=== PATIENT | female | born 1985 | race Caucasian/White ===

== ENCOUNTER 2019-09-03 08:13 | Emergency (ER) | payer OTHER, SELFPAY ==
--- NOTE | ~2019-09-03 | CT_ITS ---
EXAMINATION: CTA chest PE protocol DATE: 09/03/2019 10:25 INDICATION: Cough TECHNIQUE: Computed tomography angiography (CTA) of the chest was performed with 100 mL Omnipaque-350 intravenous contrast timed to evaluate the pulmonary arteries. Coronal maximum intensity projection 3D-reconstructions were created by the technologist. Automated exposure control and iterative reconst ruction technique were employed. Exam dose: 230.61 mGy-cm total exam DLP. COMPARISON: 09/03/2019 view chest x-ray FINDINGS: There is diagnostic contrast enhancement of the pulmonary arteries and no evidence of pulmo nary embolism. No thoracic aortic aneurysm or dissection. No hilar or mediastinal mass lesion or lymphadenopathy. Normal heart size. No pericardial or pleural effusion. No pulmonary infiltrate or consolidation or pulmonary mass lesion is detected. There is evidence of bilateral nephrolithiasis. Included upper abdominal structures are otherwise unr emarkable. Included skeletal structures are unremarkable. IMPRESSION: No evidence of pulmonary embolism Bilateral nephrolithiasis Reviewed, dictated and finalized at [facility]. Reviewed, dictated and finalized at location B. 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
--- NOTE | ~2019-09-03 | XR_ITS ---
EXAMINATION: XR chest 2V DATE: 09/03/2019 08:57 INDICATION: Cough. TECHNIQUE: Frontal and lateral views of the chest were obtained. COMPARISON: Chest 2 views 10/11/2010, CT abdomen and pelvis 07/29/2016 FINDINGS: The chest demonstrates clear lungs without pneumonia, pleural effusion, or pneumothorax. Th e heart size is normal. IMPRESSION: 1. No acute cardiopulmonary disease. Reviewed, dictated and finalized at location A. MONITOR
[2019-09-03 08:22] VITALS: BP 134/75; PULSE 116; RESP 20; TEMP 36.8; O2SAT 97
--- NOTE | 2019-09-03 08:32 | ED.URI ---
HPI - URI/Sore Throat General Chief Complaint: Upper Respiratory Infection Stated Complaint: Cough Time Seen by Provider: 09/03/19 08:18 Source: patient Mode of arrival: ambulatory Limitations: no limitations History of Present Illness HPI Narrative: Patient presents with chief complaint of persistent cough and sore throat that has been present since . She denies pain with inspiration or feelings of shortness of breath. She denies any fever, chills, rhinorrhea, congestion. She did not receive a flu shot this year. Patient states she has asthma and has felt wheezing in the chest. Patient states she has not used an inhaler because she does not have one at home. She denies smoking. She denies known sick contacts. She reports productive cough of clear phlegm that has been persistent and worsening. She denies - due to hysterectomy. She reports she had the cough before traveling to [place], but it has worsened since. Related Data Allergies Allergy/AdvReac Type Severity Reaction Status Date / Time latex Allergy Severe RASH OVER Verified 09/03/19 08:31 ENTIRE BODY, DENIES RESPIR. DISTRESS-GLOVES meperidine Allergy Severe GENERALIZED Verified 09/03/19 08:31 SWELLING tree and shrub pollen Allergy Unknown ITCHY Verified 09/03/19 08:31 WATERY EYES, SOB DIPHENHYDRAMINE HCL Allergy Unknown ITCHING Uncoded 09/03/19 08:31 Grass Allergy Unknown ITCHY Uncoded 09/03/19 08:31 WATERY EYES, SOB Review of Systems Review of Systems: Narrative: CONSTITUTIONAL: Denies fever, chills, or sweats. EYES: Denies visual changes, redness, or discharge. ENT: Reports sore throat denies rhinorrhea, congestion, or otalgia. CARDIOVASCULAR: Denies chest pain, palpitations, or edema. RESPIRATORY: Reports cough denies dyspnea. GASTROINTESTINAL: Denies abdominal pain, nausea, vomiting, or diarrhea. GENITOURINARY: Denies dysuria or hematuria. SKIN: Denies rash or itching. MUSCULOSKELETAL: Denies back pain, joint pain, or myalgia. NEUROLOGIC: Denies headache, numbness, dizziness, or weakness. PSYCHIATRIC: Denies anxiety or depression. PMFSH Social History Social History Gender identity (if verbalized by the patient): Female Exam Narrative: Exam Narrative: GENERAL: Well-appearing, well-nourished, and in no acute distress. HEAD: Normocephalic, atraumatic. EYES: PERRLA and EOMI. ENT: Nares clear, no rhinorrhea or epistaxis. Mucous membranes moist. Oropharynx without tonsillar hypertrophy exudate or other lesions. Bilateral TMs pearly quan nonbulging NECK: Supple. No adenopathy or masses. No carotid bruits or JVD CHEST: Clear to auscultation. No respiratory distress. No wheezes rales or rhonchi. Persistent dry cough noted during physical exam. No CVA tenderness HEART: Regular rate and rhythm. No murmur heard. Normal peripheral pulses. EXTREMITIES: Normal range of motion. No edema. SKIN: Warm, dry, no rash. NEURO: No focal deficits. Alert and oriented x3. PSYCH: Normal mood and affect. Course Course Emergency Course: Patient now admits to being on estrogen therapy and her cough presenting after her long travel to [place]. She does not smoke or have calf pain, but due to the former risk d dimer will be obtained. Patient states her symptoms feel like past episodes of bronchitis or pneumonia but she is agreeable to dimer after risks and benefits were explained. Vital Signs Vital signs: Vital Signs Temperature 98.3 F 09/03/19 08:22 Pulse Rate 116 H 09/03/19 08:22 Respiratory Rate 20 09/03/19 08:22 Blood Pressure 134/75 09/03/19 08:22 Pulse Oximetry 97 09/03/19 08:22 Temperature 98.3 F 09/03/19 08:22 Pulse Rate 116 H 09/03/19 08:22 Respiratory Rate 20 09/03/19 08:22 Blood Pressure 134/75 09/03/19 08:22 Pulse Oximetry 97 09/03/19 08:22 MDM - URI/Sore Throat MDM Narrative Medical decision making narrative: Discussed with patient that she has been found negative
[2019-09-03] MEDS: ALBUTEROL SULFATE NEB 2.5 MG/0.5 ML INH 5 MG INHALATION (08:43)
[2019-09-03 09:54] LABS: D Dimer 1.12 ug/mL (<0.48)
[2019-09-03 10:08] LABS: Basophils Percent Auto 0.1 % (0.2-1.2); Eosinophils Percent Auto 0.3 % (0-4.4); Hematocrit 39.6 % (37.0-47.0); Hemoglobin 12.8 g/dL (12.0-15.0); Immature Granulocyte Absolute 0.01 K/mm3 (0.00-0.031); Immature Granulocyte Percent A 0.1 % (0-0.5); Lymphocytes Absolute Auto 2.95 K/mm3 (0.9-3.2); Lymphocytes Percent Auto 40.1 % (18.3-44.2); Mean Corpuscular HGB Conc 32.3 g/dl (32-36); Mean Corpuscular Hemoglobin 28.2 pg (26-34); Mean Corpuscular Volume 87.2 fl (80-100); Mean Platelet Volume 9.7 fl (7.4-10.4); Monocytes Absolute Auto 0.8 K/mm3 (0.1-0.6); Monocytes Percent Auto 10.6 % (2.6-8.5); Neutrophils Absolute Auto 3.6 K/mm3 (1.3-6.7); Neutrophils Percent Auto 48.8 % (45.5-73.1); Platelet Count Result 333 k/mm3 (150-375); Red Blood Count 4.54 M/mm3 (4.2-5.4); Red Cell Distribution Width 13.2 % (11.5-14.5); White Blood Count 7.4 K/mm3 (4.5-10.0)
[2019-09-03 10:15] LABS: Alanine Aminotransferase 24 U/L (4-35); Albumin Level 4.4 g/dL (3.5-5.1); Alkaline Phosphatase 73 U/L (38-126); Aspartate Amino Transferase 24 U/L (14-36); Bilirubin,Total 0.6 mg/dL (0.2-1.3); Blood Urea Nitrogen 14 mg/dL (7-17); Calcium 9.1 mg/dL (8.4-10.2); Carbon Dioxide 25 mmol/L (22-30); Chloride 103 mmol/L (98-107); Estimated CRCL calculation 124 ml/min; Estimated Glomerular Filt Rate > 60; Glucose 109 mg/dL (65-105); Potassium 3.4 mmol/L (3.4-5.0); Sodium 140 mmol/L (137-145)
== END 2019-09-03 11:17 | disposition home or self-care (01) ==
PROVIDERS: Physician Assistant; Emergency Provider Emergency Medicine
DX: J40 Bronchitis, not specified as acute or chronic (principal)
CPT/HCPCS: 36415; 71046; 71275; 80053; 85025; 85380; 87081; 87804; 87880; 94640; 99284; Q9967

== ENCOUNTER 2020-03-02 10:09 | Outpatient (CLI) | payer OTHER, SELFPAY ==
--- NOTE | ~2020-03-02 | XR_ITS ---
XR cervical spine 4-5V DATE: 03/02/2020 11:03 INDICATION: Neck pain TECHNIQUE: AP, open-mouth, lateral, swimmer views COMPARISON: None FINDINGS: No fracture or dislocation or locked facet. C1 and C2 are normally aligned and the odontoid process is intact. No prevertebral soft tissue swelling. Cervical interspaces are preserved. IMPRESSION: Negative Reviewed, dictated and finalized at location B. IMPRESSION: Negative
--- NOTE | ~2020-03-02 | XR_ITS ---
XR sacroiliac joints min 3V DATE: 03/02/2020 11:03 INDICATION: Bilateral sacroiliac pain, low back pain. TECHNIQUE: AP and bilateral oblique views COMPARISON: None FINDINGS: No pelvic fracture or bone destruction. Normal alignment at the pubic symphysis and sacroil iac joints. No erosion, ankylosis, fracture or dislocation of the sacroiliac joints. IMPRESSION: Negative Reviewed, dictated and finalized at [facility]. Reviewed, dictated and finalized at location B. IMPRESSION: Negative
--- NOTE | ~2020-03-02 | XR_ITS ---
XR lumbar spine min 4V DATE: 03/02/2020 11:03 INDICATION: Low back pain, pelvic and perineal pain. No injury. TECHNIQUE: Lateral oblique views, coned lateral lumbosacral view COMPARISON: None FINDINGS: Normal alignment. No fracture or bone destruction, spondylolysis or spondylolisthesis. The lumbar pedicles are intact. The sacroiliac joints appear normal. Lumbar levels secondary spaces are well preserved. There is minimal degenerative spurring at the ante rosuperior margins of L3-L4 primarily. The sacroiliac joints appear normal. IMPRESSION: Minimal degenerative change of the lumbar spine Reviewed, dictated and finalized at location B.
[2020-03-02 12:24] LABS: Basophils Percent Auto 0.5 % (0.2-1.2); Eosinophils Absolute Auto 0.2 K/mm3 (0-0.3); Eosinophils Percent Auto 2.5 % (0-4.4); Hematocrit 39.4 % (37.0-47.0); Hemoglobin 12.8 g/dL (12.0-15.0); Immature Granulocyte Absolute 0.03 K/mm3 (0.00-0.031); Immature Granulocyte Percent A 0.3 % (0-0.5); Lymphocytes Absolute Auto 2.64 K/mm3 (0.9-3.2); Lymphocytes Percent Auto 30.5 % (18.3-44.2); Mean Corpuscular HGB Conc 32.5 g/dl (32-36); Mean Corpuscular Hemoglobin 28.7 pg (26-34); Mean Corpuscular Volume 88.3 fl (80-100); Mean Platelet Volume 9.8 fl (7.4-10.4); Monocytes Absolute Auto 0.6 K/mm3 (0.1-0.6); Monocytes Percent Auto 6.4 % (2.6-8.5); Neutrophils Absolute Auto 5.2 K/mm3 (1.3-6.7); Neutrophils Percent Auto 59.8 % (45.5-73.1); Platelet Count Result 332 k/mm3 (150-375); Red Blood Count 4.46 M/mm3 (4.2-5.4); Red Cell Distribution Width 12.6 % (11.5-14.5); White Blood Count 8.7 K/mm3 (4.5-10.0)
[2020-03-02 12:35] LABS: Add Urine Microscopic? YES; Appearance Urine Cloudy (Clear); Bacteria Urine Trace /hpf; Bilirubin Urine Negative (Negative); Blood Urine Negative (Negative); Color Urine Yellow (Yellow); Glucose Urine UA Negative (Negative); Ketones Urine Negative (Negative); Leukocyte Esterase Ur Negative LEU/UL (Negative); Mucus Urine Few /lpf; Nitrate Urine Negative (Negative); Protein Urine Negative (Negative); RBC Urine 0-2 /hpf (0-2); Specific Grav Ur 1.016 (1.001-1.035); Squamous Epithelial Cell Urine Many /hpf (Few); Urobilinogen Urine Negative mg/dL (<2.0); WBC Urine 0-3 /hpf
[2020-03-02 12:40] LABS: Alanine Aminotransferase 22 U/L (4-35); Albumin Level 4.4 g/dL (3.5-5.1); Alkaline Phosphatase 63 U/L (38-126); Anion Gap 13.4 mmol/L (7-16); Aspartate Amino Transferase 21 U/L (14-36); Bilirubin,Total 0.7 mg/dL (0.2-1.3); Blood Urea Nitrogen 12 mg/dL (7-17); CRP < 0.5 mg/dL (<1.0); Calcium 9.1 mg/dL (8.4-10.2); Carbon Dioxide 26 mmol/L (22-30); Chloride 103 mmol/L (98-107); Creatine Kinase 72 U/L (30-135); Estimated Glomerular Filt Rate > 60; Glucose 98 mg/dL (65-105); Potassium 4.4 mmol/L (3.4-5.0); Sodium 138 mmol/L (137-145)
[2020-03-02 12:41] LABS: Rheumatoid Factor < 8.6 IU/ML (<12)
[2020-03-02 13:10] LABS: Erythrocyte Sedimentation Rate 15 mm/hr (0-20)
[2020-03-02 13:57] LABS: Hepatitis B Surface Antigen Negative (Negative)
[2020-03-02 14:14] LABS: Hepatitis C Virus Antibody Negative (Negative)
[2020-03-05 09:52] LABS: Anti Cyclic Citrullinated Pept <16 Units (<20)
[2020-03-06 07:43] LABS: Chromatin Antibody <1.0; SS-A <1.0; SS-B <1.0
[2020-03-18 07:00] LABS: Histone Antibody <1.0 U (<1.0)
== END 2020-03-02 10:10 | disposition home or self-care (01) ==
PROVIDERS: Visit Provider Internal Medicine Rheumatology
DX: M54.42 Lumbago with sciatica, left side (principal); M54.41 Lumbago with sciatica, right side
CPT/HCPCS: 36415; 72050; 72110; 72202; 80053; 81001; 82550; 83516; 84439; 84443; 85025; 85652; 86038; 86140; 86200; 86235; 86430; 86803; 87340

== ENCOUNTER 2020-06-02 09:36 | Outpatient (CLI) | payer OTHER, SELFPAY ==
--- NOTE | ~2020-06-02 | US_ITS ---
EXAMINATION: US pelvic complete w TV EXAM DATE: 06/02/2020 10:32 INDICATION: Pelvic, perineal pain. Hysterectomy 2019. TECHNIQUE: Pelvic transabdominal and transvaginal sonogram was performed. There are multiple graysca le and Doppler images available for interpretation. Comparison is made to prior examination from 08/16. FINDINGS: The vaginal cuff is unremarkable. There is small amount of free pelvic fluid. There is no f ree pelvic fluid. Right adnexa: The ovary measures 3.1 x 3.1 x 2.2 cm and is morphologically normal. Ovarian vascular f low confirmed. Left adnexa: The ovary measures 4.1 x 2.3 x 2.7 cm and is morphologically normal. Ovarian vascular fl ow confirmed. IMPRESSION: 1. Unremarkable pelvic ultrasound exam. Reviewed, dictated and finalized at location B. 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
== END 2020-06-02 09:37 | disposition home or self-care (01) ==
PROVIDERS: Visit Provider Advanced Practice Midwife
DX: R10.2 Pelvic and perineal pain (principal)
CPT/HCPCS: 76830; 76856

== ENCOUNTER 2020-06-14 08:41 | Outpatient (CLI) | payer OTHER, SELFPAY ==
--- NOTE | ~2020-06-14 | US_ITS ---
EXAMINATION: US abdomen complete EXAM DATE: 06/14/2020 09:33 INDICATION: Suspect gallstones. TECHNIQUE: Multiple grayscale and Doppler images of the complete abdomen were obtained (by a technolo gist who performed the scan) and subsequently reviewed. There is no prior study for comparison. FINDINGS: The abdominal aorta is normal in caliber. Visualized portion IVC is patent. The pancreatic head a nd body are normal in appearance. The pancreatic tail is not visualized. The liver has normal echogenicity and contour. There are no focal liver lesions identified. There is no evidence of intrahepatic biliary duct dilation. Portal venous flow was seen in the hepatopedal , normal direction and has normal Doppler waveform. Common bile duct measures 2 mm, which is normal. The gallbladder wall is normal in thickness, with ex pected amount of distention. No sonographic evidence of pericholecystic fluid. There is no cholelit hiases. Technologist performing exam reports patient did not demonstrate sonographic Boswell's sign. Please note that this sign is less reliable in patients who have received pain medication. Right kidney: There is normal contour and echogenicity. It measures 10.8 x 4.8 x 4.7 centimeters. There are no focal renal lesions identified. There is no hydronephrosis. Left kidney: There is normal contour and echogenicity. It measures 10.9 x 4.8 x 5.7 centimeters. T here are no focal renal lesions identified. There is no hydronephrosis. The spleen measures 10.7 centimeters and is morphologically normal. IMPRESSION: 1. Unremarkable complete abdominal ultrasound exam. Reviewed, dictated and finalized at location A. 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
== END 2020-06-14 08:42 | disposition home or self-care (01) ==
PROVIDERS: Visit Provider Advanced Practice Midwife
DX: Z13.818 Encounter for screening for other digestive system disorders (principal)
CPT/HCPCS: 76700

== ENCOUNTER 2020-06-18 10:14 | Emergency (ER) | payer OTHER, SELFPAY ==
[2020-06-18 10:50] VITALS: BP 108/78; PULSE 101; RESP 14; TEMP 37; O2SAT 99
[2020-06-18 11:13] VITALS: BP 102/70; PULSE 88; RESP 17; O2SAT 99
--- NOTE | 2020-06-18 11:42 | ED.GENADULT ---
HPI - General Adult General Chief complaint: Upper Respiratory Infection <JAGDISH Morrissey Last Filed: 06/18/20 11:56> Stated complaint: frias/st/body aches <Bulmaro Glez PA-C - Last Filed: 06/18/20 11:56> Time Seen by Provider: 06/18/20 10:19 <Bulmaro Glez PA-C - Last Filed: 06/18/20 11:56> Source: patient <JAGDISH Morrissey Last Filed: 06/18/20 11:56> Mode of arrival: ambulatory <JAGDISH Morrissey Last Filed: 06/18/20 11:56> Limitations: no limitations <JAGDISH Morrissey Last Filed: 06/18/20 11:56> History of Present Illness HPI narrative: Patient presents with chief complaint of headaches, sore throat and body aches that began on Sunday. Patient states she has been taking Tylenol or ibuprofen for her discomfort. Patient denies cough, being short of breath, or having chest pain, lethargy or syncope. She denies any known Covid positive contacts. Patient denies any chronic health problems and states that her only daily medications is a multivitamin. <JAGDISH Morrissey Last Filed: 06/18/20 11:56> Related Data Allergies/adverse reactions: Allergies Allergy/AdvReac Type Severity Reaction Status Date / Time latex Allergy Severe RASH OVER Verified 09/03/19 08:31 ENTIRE BODY, DENIES RESPIR. DISTRESS-GLOVES meperidine Allergy Severe GENERALIZED Verified 09/03/19 08:31 SWELLING tree and shrub pollen Allergy Unknown ITCHY Verified 09/03/19 08:31 WATERY EYES, SOB DIPHENHYDRAMINE HCL Allergy Unknown ITCHING Uncoded 09/03/19 08:31 Grass Allergy Unknown ITCHY Uncoded 09/03/19 08:31 WATERY EYES, SOB <JAGDISH Morrissey Last Filed: 06/18/20 11:56> Review of Systems Review of Systems: Narrative: CONSTITUTIONAL: Reports body aches denies fever, chills, or sweats. EYES: Denies visual changes, redness, or discharge. ENT: Reports sore throat denies rhinorrhea, congestion, or otalgia. CARDIOVASCULAR: Denies chest pain, palpitations, or edema. RESPIRATORY: Denies cough or dyspnea. GASTROINTESTINAL: Denies abdominal pain, nausea, vomiting, or diarrhea. GENITOURINARY: Denies dysuria or hematuria. SKIN: Denies rash or itching. MUSCULOSKELETAL: Denies back pain, joint pain, or myalgia. NEUROLOGIC: Reports headache denies numbness, dizziness, or weakness. PSYCHIATRIC: Denies anxiety or depression. <Bulmaro Glez PA-C - Last Filed: 06/18/20 11:56> [facility] Social History Social History: Social History Gender identity (if verbalized by the patient): Female <JAGDISH Morrissey Last Filed: 06/18/20 11:56> Exam Narrative: Exam Narrative: GENERAL: Well-appearing, well-nourished, and in no acute distress. HEAD: Normocephalic, atraumatic. EYES: PERRLA and EOMI. ENT: Nares clear, no rhinorrhea or epistaxis. Patient handling her secretions appropriately. No gagging or hot potato voice. CHEST: Clear to auscultation. No respiratory distress. No wheezes rales or rhonchi. Not tachypneic HEART: Regular rate and rhythm. EXTREMITIES: Normal range of motion. No edema. SKIN: Warm, dry, no rash. NEURO: No focal deficits. Alert and oriented x3. PSYCH: Normal mood and affect. <Bulmaro Glez PA-C - Last Filed: 06/18/20 11:56> Course Vital Signs Vital signs: Vital Signs Temperature 98.6 F 06/18/20 10:50 Pulse Rate 101 H 06/18/20 10:50 Respiratory Rate 14 06/18/20 10:50 Blood Pressure 108/78 06/18/20 10:50 Pulse Oximetry 99 06/18/20 10:50 Temperature 98.6 F 06/18/20 10:50 Pulse Rate 76 06/18/20 12:04 Respiratory Rate 17 06/18/20 12:04 Blood Pressure 131/72 06/18/20 12:04 Pulse Oximetry 99 06/18/20 12:04 <JAGDISH Morrissey Last Filed: 06/18/20 11:56> Vital Signs Temperature 98.6 F 06/18/20 10:50 Pulse Rate 101 H 06/18/20 10:50 Respiratory Rate 14 06/18/20 10:50 Blood Pressure 108/78 06/18/20 10:50 Pulse Oximetry 99 06/18/20 10
[2020-06-18 12:04] VITALS: BP 131/72; PULSE 76; RESP 17; O2SAT 99
[2020-06-18 19:24] LABS: SARS-CoV-2 RNA PCR Positive
== END 2020-06-18 12:05 | disposition home or self-care (01) ==
PROVIDERS: Physician Assistant; Emergency Provider General Practice
DX: U07.1 COVID-19 (principal)
CPT/HCPCS: 87081; 87635; 87804; 87880; 99283; C9803; U0003

== ENCOUNTER 2020-07-09 02:06 | Outpatient (CLI) | payer OTHER, SELFPAY ==
[2020-07-09 18:46] LABS: SARS-CoV-2 RNA PCR Negative
== END 2020-07-09 02:07 | disposition home or self-care (01) ==
LOC: ANHCOVIDDT 02:06
PROVIDERS: Visit Provider Obstetrics & Gynecology
DX: Z01.812 Encounter for preprocedural laboratory examination (principal); Z11.59 Encounter for screening for other viral diseases
CPT/HCPCS: 87635; C9803; U0003

== ENCOUNTER 2020-07-12 00:48 | Day surgery (SDC) | payer OTHER, SELFPAY ==
[2020-07-02 14:22] VITALS: BMI 28.0
[2020-07-12] VITALS (9 sets, daily range): BP systolic 96–130; BP diastolic 56–73; PULSE 70–89; RESP 14–20; TEMP 36.1–37.1; O2SAT 97–100
--- NOTE | 2020-07-12 07:25 | WPDHPUPDATE1 ---
History and Physical Update Update Date/Time: 07/12/20 07:25 History and Physical has been reviewed, including an updated exam of the patient. There are NO changes in the patient's condition. Risks, benefits, and alternatives have been discussed and questions answered. Patient agrees to proceed with procedure.
--- NOTE | 2020-07-12 08:13 | WPDANESEPPF ---
Anes - Initial Pre Proc Eval Procedure: Operation Date: 07/12/20 09:30 Proposed Procedures p Laparoscopic Bilateral Salpingo-Oophorectomy - Nader Landeros MD Date/Time: 07/12/20 08:13 Surgeon: Nader Landeros MD Pre Op Diagnosis: Endometriosis Of Pelvis Patient Data Age: 34 Gender: F Height: 1.6 m Weight: 71 kg Last Vital Signs Temp 37.1 C 07/12/20 07:17 Pulse 81 07/12/20 07:17 Resp 14 07/12/20 07:17 BP 130/73 07/12/20 07:17 Pulse Ox 100 07/12/20 07:17 Allergies Allergy/AdvReac Type Severity Reaction Status Date / Time latex Allergy Severe RASH OVER Verified 07/12/20 08:02 ENTIRE BODY, DENIES RESPIR. DISTRESS-GLOVES meperidine Allergy Severe GENERALIZED Verified 07/12/20 08:02 SWELLING tree and shrub pollen Allergy Intermediate ITCHY Verified 07/12/20 08:02 WATERY EYES, SOB DIPHENHYDRAMINE HCL Allergy Severe Muscle Uncoded 07/12/20 08:02 Spasms Grass Allergy Mild ITCHY Uncoded 07/12/20 08:02 WATERY EYES, SOB Home Medications Medication Instructions Recorded Confirmed Type multivitamin with minerals [All 1 tablet PO DAILY 07/02/20 07/02/20 History Purpose Multivitamin-Min] Patient hx anesthesia problems: none Family hx anesthesia problems: none PMFSH Past Medical History Medical History (Updated 07/12/20 @ 08:17 by David Landry DO) Asthma Social History Social History Smoking status: Never smoker Living arrangements: with family Gender identity (if verbalized by the patient): Female Spiritual care concerns: No Anes - Eval Final PreProcedure Day of Procedure 07/12/20 08:13 Patient weight: overweight Heart: regular rate and rhythm Lungs: clear to auscultation and normal air movement Airway: Mallampati scale class II Neurological: alert and oriented Last oral intake: >/= 8 hours ASA classification: II Emergent: no Anesthetic plan: proceed Anesthesia type and monitoring: general ETT and standard monitoring Informed Consent: The patient's anesthetic plan and its attendant risks and benefits were discussed with the patient/family/POA. Questions were solicited and answers provided to the satisfaction of the patient/family/POA.
[2020-07-12] MEDS: LACTATED RINGERS 1,000 ML 30 ML IV CONT ×2 (08:19→11:31)
[2020-07-12] MEDS: ACETAMINOPHEN 500 MG TABLET 1000 MG PO (08:20)
[2020-07-12] MEDS: KETOROLAC 15 MG/ML VIAL (*BKC) IV PUSH (08:20)
--- NOTE | 2020-07-12 10:00 | SUR.OPER ---
patient requested Miles to be called for start update. Attempted x1 answer machine no message left. Stated in preop he most likely will not answer phone.
--- NOTE | 2020-07-12 10:17 | SUR.OPER ---
Dr. Bradford in OR for consult. 10:17.
--- NOTE | 2020-07-12 10:18 | SUR.OPER ---
Dr Bradford out of OR 10:18
--- NOTE | 2020-07-12 10:19 | SUR.OPER ---
Dr Bradford in OR 10:19
--- NOTE | 2020-07-12 10:21 | SUR.OPER ---
Dr Bradford out of OR.
--- NOTE | 2020-07-12 11:30 | P.OP_ITS ---
Procedure Note - Detailed Date of procedure: 07/12/20 Pre-op diagnosis: Endometriosis Of Pelvis Procedure performed: Laparoscopic bilateral salpingo-oophorectomy, adhesiolysis- 1 hour Description of procedure: The patient was taken the operating room. She was prepped and draped in the dorsal lithotomy position after induction of general anesthesia. A 5 mm left upper quadrant incision was made in the abdominal skin with a scalpel. A 5 mm trocar was inserted the intra-abdominal cavity under direct visualization of the scope. A 5 mm left lower quadrant incision was made with the scalp on the abdominal skin and a 5 mm trocar was inserted the intra- abdominal cavity under direct visualization of the scope. A 5 mm infraumbilical incision was made with scalpel and a 5 mm trocar was inserted into the intra- abdominal cavity under direct visualization of the scope. 1 hour of adhesiolysis was performed. There was adhesion between the colon the anterior abdominal wall, omentum and anterior abdominal wall. There was adhesions between the colon and all lateral pelvic sidewall. The ovary on the left was covered with pericolic fat and adhesions. LigaSure, and scissors along with blunt dissection were used throughout the case. There was a concern about a small diverticulum incorporated into the adhesions of the anterior abdominal wall. Clips were placed on these. There was serosal tear of the sigmoid colon occurred during the dissection. The serosal tear was about a cm in length. Possibly 1cm and half.. Dr. Bradford came to view the clips placed on the pericolic scar/diverticuli. He also viewed the serosal tear and believed to could be observed, and that the clips were placed adequately. The ureter was dissected out on the left side down to the uterine artery. The infundibulopelvic ligament was cauterized and transected with LigaSure. The para ovarian tissue was cauterized transected using LigaSure as well. It was amputated. The right ovary was raised away from the ureter and the infundibulopelvic ligament was cauterized. [place] ovarian tissue was transected and cauterized. This ovaries amputated. Both ovaries were placed in the bag. There taken at the left lower quadrant trocar site. The pelvis was examined. A couple of bleeding areas were cauterized. Hemaderm was applied over the left adnexa. The pelvis was irrigated with copious amounts of normal saline. The pneumoperitoneum was reduced. The trocars were removed. The patient was taken recovery room stable condition. Sponge lap and needle counts were correct x2. Anesthesia: GETA Surgeon: Nader Landeros MD Estimated blood loss (mL): 20 Drains: No Packing: No Complications: No immediate complications Condition: stable Disposition: PACU Findings: Adhesions between the colon the anterior abdominal wall, between the omentum to the anterior abdominal wall, adhesions between the perirectal fat of the lateral pelvic sidewall. Adhesions surrounding the left ovary, some adhesions on the right ovary. Benign-appearing ovaries, no discernible tube given the scar tissue.
[2020-07-12] MEDS: fentaNYL CITRATE INJ (*CRX) 100 MCG/2 ML VIAL 25 MCG IV PUSH ×3 (11:56→12:18)
[2020-07-12] MEDS: oxyCODONE HCL (*CRX) 5 MG TAB IR PO (13:03)
[2020-07-12] MEDS: PROPARACAINE HCL 0.5% 15 ML OPHTH SOLN 1 DROP EACH EYE (14:27)
== END 2020-07-12 14:35 | disposition home or self-care (01) ==
PROVIDERS: Visit Provider Obstetrics & Gynecology
PROC: (CPT 49320; principal; 2020-07-12 09:30)
DX: N73.6 Female pelvic peritoneal adhesions (postinfective) (principal); N83.202 Unspecified ovarian cyst, left side; N83.201 Unspecified ovarian cyst, right side; K57.30 Diverticulosis of large intestine without perforation or abscess without bleeding
CPT/HCPCS: 58661; 88305; A9270; J1100; J1885; J2250; J2405; J2704; J2710; J3010; J7030; J7120

== ENCOUNTER → 2020-09-08 08:21 | Outpatient (CLI) | payer OTHER, SELFPAY ==
--- NOTE | ~2020-09-08 | MMUS_ITS ---
EXAMINATION: MM diagnostic genie BI w carmen, US breast LT limited HISTORY: Left lower inner quadrant breast lump. Left breast pain. TECHNIQUE: ML, MLO and cc 3-D tomosynthesis images of both breasts were performed and synthetic 2-D i mages were generated. Magnification views of right breast. CAD analysis was submitted and interpreted . High resolution targeted left breast ultrasound was performed. COMPARISON: None BREAST PARENCHYMAL COMPOSITION: There are scattered areas of fibroglandular density. FINDINGS: MAMMOGRAPHIC FINDINGS: There is a cluster grouped microcalcifications in the outer mid right breast which have a benign appe arance, most likely due to fat necrosis or fibroadenoma. No suspicious mass, architectural distortion, malignant calcification, skin thickening or retraction of either breast is evident. In particular, no mammographic abnormality is noted at the lower inner q uadrant of the left breast at area of clinical complaint of breast lump. ULTRASOUND: Targeted ultrasound at 8:00 4.5 cm from nipple was performed. No suspicious mass or shadowing, cyst o r other significant sonographic finding is noted. IMPRESSION: 1. No mammographic evidence of malignancy 2. Routine annual mammographic screening is recommended. BI-RADS Category 2: Benign finding(s). Reviewed, dictated and finalized at location A. ACTORY MIXER IMPRESSION: 1. No mammographic evidence of malignancy 2. Routine annual mammographic screening is recommended. BI-RADS Category 2: Benign finding(s).
== END ==
PROVIDERS: Visit Provider Nurse Practitioner Obstetrics & Gynecology
DX: N64.4 Mastodynia (principal)
CPT/HCPCS: 76642; 77062; 77066; G0279

== ENCOUNTER 2024-06-09 19:47 | Emergency (ER) | payer SELFPAY ==
[2024-06-09 19:52] VITALS: BP 133/75; PULSE 110; RESP 20; TEMP 36.6; O2SAT 100
--- NOTE | 2024-06-09 20:05 | ED.URI ---
HPI - URI/Sore Throat General Chief Complaint: Upper Respiratory Infection Stated Complaint: cough/back of neck Source: patient Mode of arrival: ambulatory Limitations: no limitations History of Present Illness HPI Narrative: 38-year-old female presented for complaint of cough for 2 weeks. Cough results in difficulty catching her breath and pain to the back of the neck and chest. Taking multiple ethm-hbh-roeqduv medicines without relief. Denies associated palpitations, wheezing, nausea, vomiting, diarrhea, fevers or lethargy. Related Data Allergies Allergy/AdvReac Type Severity Reaction Status Date / Time latex Allergy Severe RASH OVER Verified 06/09/24 20:04 ENTIRE BODY, DENIES RESPIR. DISTRESS-GLOVES meperidine Allergy Severe GENERALIZED Verified 06/09/24 20:04 SWELLING tree and shrub pollen Allergy Intermediate ITCHY Verified 06/09/24 20:04 WATERY EYES, SOB DIPHENHYDRAMINE HCL Allergy Severe Muscle Uncoded 06/09/24 20:04 Spasms Grass Allergy Mild ITCHY Uncoded 06/09/24 20:04 WATERY EYES, SOB Review of Systems Review of Systems: CONSTITUTIONAL: Denies body aches, fever, chills, or sweats. EYES: Denies visual changes, redness, or discharge. ENT: Denies rhinorrhea, congestion, sore throat, or otalgia. CARDIOVASCULAR: Denies chest pain, palpitations, or edema. RESPIRATORY: Reports cough, sob, denies wheezing. GASTROINTESTINAL: Denies abdominal pain, nausea, vomiting, or diarrhea. SKIN: Denies rash. NEUROLOGIC: Reports headache All systems reviewed & are unremarkable except as noted in HPI and below PMFSH Past Medical History Medical History Asthma Social History Social History Smoking status: Never smoker Living arrangements: with family Gender identity (if verbalized by the patient): Female Spiritual care concerns: No Comments At time of signature, I have reviewed and agree with nursing past medical, surgical, social and family history unless otherwise noted. Please see nursing chart for further information. There is no relevant family history pertinent to the presenting complaint Exam Narrative: GENERAL: mildly ill-appearing, in no acute distress. EYES: EOMI. No redness or drainage. Conjunctivae normal. ENT: Mucous membranes pink and moist. No rhinorrhea. TMs normal bilaterally. Throat normal. Uvula midline. NECK: Normal AROM. Supple. CHEST: No respiratory distress. lungs clear and diminished to all sherman. HEART: Regular rate and rhythm. No murmur appreciated. SKIN: Warm, dry, Capillary refill normal. Normal skin turgor. NEURO: Alert and oriented x3. Gait steady. PSYCH: Normal affect. Course Course Emergency Course: Patient is aware of diagnosis, understands and agrees to treatment plan. Anticipatory guidance given. Patient agrees to follow-up as directed and is aware of reasons to seek care at the emergency department. Portions of this record may have been created with voice recognition software Level of Care: Express Care Visit Vital Signs Vital signs: Vital Signs Temperature 97.9 F 06/09/24 19:52 Pulse Rate 110 H 06/09/24 19:52 Respiratory Rate 20 06/09/24 19:52 Blood Pressure 133/75 06/09/24 19:52 Pulse Oximetry 100 06/09/24 19:52 Oxygen Delivery Room Air 06/09/24 19:52 Temperature 97.9 F 06/09/24 19:52 Pulse Rate 110 H 06/09/24 19:52 Respiratory Rate 20 06/09/24 19:52 Blood Pressure 133/75 06/09/24 19:52 Pulse Oximetry 100 06/09/24 19:52 Oxygen Delivery Room Air 06/09/24 19:52 MDM - URI/Sore Throat MDM Narrative Medical decision making narrative: Discussed physical exam findings, cough for 2 weeks. Reviewed prescriptions with patient.. Advised supportive measures and signs/symptoms to go to the ER. Pt is appropriate for outpt treatment and f/u. Differential Diagnosis Differential diagnosis: Likely upper respiratory infection, sinusitis, viral infection, bronchitis and other (pneumonia) Discharge Plan Discharge Clinical Impression: Bronchitis Patient Disposition: Home, Self-Care Condition: Stable Instructions: Antibiotic Form, Acute Bronchitis (ED) Additional Instructions: Acute bronchitis can be contagious because it is usually caused by infection with a virus or bacteria. It is usually for a few days but you can be contagious for up to one week. Take medication as directed Recommend Flonase spray and Zyrtec (or Claritin/Damaris) over the counter Cough syrup may cause drowsiness; avoid driving or take it at night time. Tylenol 1000mg every 8 hours as needed for pain Symptomatic treatment includes: rest, fluids, and increase humidity of the air at home. Follow up with your primary care provider as needed in 1 week Go to the ER for worsening symptoms or concerns Prescriptions: New azithromycin [Zithromax Z-Robert] 250 mg tablet See Rx Instructions .ROUTE .COMPLEX Qty: 6 0RF Rx Instructions: For 250 mg dose pack: take 500 mg today (day 1), then 250 mg for 4 days (days 2-5) methylprednisolone [Medrol (Robert)] 4 mg tablets,dose pack See Rx Instructions .ROUTE .COMPLEX Qty: 21 0RF Rx Instructions: orally per package directions albuterol sulfate 90 mcg/actuation HFA aerosol inhaler 2 inh inhalation QID PRN (Reason: shortness of breath or wheezing) Qty: 8.5 0RF No Action estradiol 1 mg tablet 1 mg PO DAILY Qty: 30 12RF Follow-up/Referrals: PHYSICIAN,ASSISTANT SUPERINTENDENT [Primary Care Provider] -
== END 2024-06-09 20:10 | disposition home or self-care (01) ==
PROVIDERS: Emergency Provider Nurse Practitioner Family
DX: J40 Bronchitis, not specified as acute or chronic (principal); J45.909 Unspecified asthma, uncomplicated
CPT/HCPCS: 99213; G0463

== ENCOUNTER 2024-09-03 13:51 | Emergency (ER) | payer OTHER, SELFPAY ==
[2024-09-03 13:59] VITALS: BP 126/82; PULSE 93; RESP 116; TEMP 36.3; O2SAT 100
--- OUTSIDE RECORDS SUMMARY | 2024-09-03 14:49 | XMS_ITS | CONTINUITY OF CARE DOCUMENT ---
Author Name mir hester Address Unknown Organization [facility] Address [address] [place] [address] [address] [place] [address] Phone [phone] Care Team Providers Care Guidance Adviser Name Role Phone mir hester Unavailable Unavailable
--- OUTSIDE RECORDS SUMMARY | 2024-09-03 14:49 | XMS_ITS | Clinical Summary ---
Author Organization [facility] Address [address] [place] [address] Care Team Providers Care Assembly Adjuster Name Role Phone Oli Landeros MD Primary Care Provider [phone] Source Comments [facility],non-owned Affiliates and Associated Physician Practices is amultiple site organization consisting of ambulatory clinics and hospital sitesin [place], [place], [place] and [place]. This disclosure is being madepursuant to the Care Everywhere program and may not contain all information available regarding this patient. Last updated 18.[employer] [facility] Allergies Active Allergy Reactions Criticality Noted Date Comments Meperidine 01/14/2017 Diphenhydramine Other 06/15/2021 Body Spasms. Latex 01/14/2017 Pollen Extract Rash Medium 03/01/2020 Medications * Be aware that medications may not be up to date on this document. Alwaysverify current medications with the patient. Medication Sig Dispensed Refills Start Date End Date Status Multiple Vitamin (MULTI-VITAMIN DAILY PO) Multi Vitamin Active Drospirenone (SLYND) 4 MG TABS tablet Take 1 tablet by mouth once daily Active cetirizine (ZYRTEC) 10 MG tablet Take 1 tablet by mouth once daily as needed for Allergies 03/01/2020 Active Progesterone 100 MG capsule Take 100 mg by mouth once daily 06/09/2021 Active estradiol (ESTRACE) 1 MG tablet Take 1 mg by mouth once daily 06/09/2021 Active Family History Medical History Relation Name Comments Other - Neurologic Brother tourettes Thyroid Disease Brother hashimotos None Known Father in car acc ident Hyperlipidemia Mother Cancer - Breast Paternal Grandmother Cancer - Ovarian Paternal Grandmother Relation Name Status Comments Brother Father Mother Alive Paternal Grandmother Social History Tobacco Use Types Packs/Day Years Used Date Smoking Tobacco: Never Smokeless Tobacco: Never Sex and Gender Information Value Date Recorded Sex Assigned at Female 05/02/2024 8:10 AM CDT Gender Identity Female 05/02/2024 8:10 AM CDT Sexual Orientation Straight 05/16/2024 8: 00 PM CDT Last Filed Vital Signs Vital Sign Reading Time Taken Comments Blood Pressure 118/84 06/15/2021 3:27 PM BOWLING PIN REFINISHER Pulse 91 03/01/2020 10:56 AM CDT Temperature 36.7 C (98 F) 03/01/2020 10:56 AM CDT Respiratory Rate 16 03/01/2020 10:56 AM CDT 5'3 Oxygen Saturation 99% 03/01/2020 10:56 AM CDT Inhaled Oxygen Concentration - - Weight 76.7 kg (169 lb) 06/15/2021 3:27 PM BOWLING PIN REFINISHER Height 161.3 cm (5' 3.5 ) 06/15/2021 3:27 PM BOWLING PIN REFINISHER Body Mass Index 29.47 06/15/2021 3:27 PM BOWLING PIN REFINISHER Plan of Treatment Health Maintenance Due Date Last Done Comments PAP SMEAR 1984 HIV SCREENING 11/13/1999 HEPATITIS C SCREENING 11/08/2002 DTAP/TDAP/TD VACCINES (1 - Tdap) 11/13/2003 HEPATITIS B VACCINE (1 of 3 - 19+ 3-dose series) 11/13/2003 COVID-19 VACCINE (2023-2 5 season) 2024 INFLUENZA VACCINE (#1) 2024 DEPRESSION SCREENING 07/30/2024 ZOSTER VACCINE (1 of 2) 2034 HIB VACCINE Aged Out No longer eligi ble based on patient's age to complete this topic HPV VACCINE Aged Out No longer eligi ble based on patient's age to complete this topic MENINGOCOCCAL (Group B) VACCINE Aged Out No longer eligible based on patient's age to complete this topic MENINGOCOCCAL VACCINE Aged Out No osvaldo dinora eligible based on patient's age to complete this topic PNEUMOCOCCAL VACCINE Aged Out No long er eligible based on patient's age to complete this topic Care Teams Assembly Adjuster Relationship Specialty Start Date End Date Oli Landeros MD [address] [place] [address] PCP - General 06/30/19
--- OUTSIDE RECORDS SUMMARY | 2024-09-03 14:49 | XMS_ITS | Patient Health Summary ---
Author Organization [facility] Address [address] [place] [address] Care Team Providers Care Treater Helper Name Role Phone Oli Landeros MD Primary Care Provider [phone] Note from [facility],non-owned Affiliates and Associated Physician Practices is amultiple site organization consisting of ambulatory clinics and hospital sitesin [place], [place], [place] and [place]. This disclosure is being madepursuant to the Care Everywhere program and may not contain all information available regarding this patient. Last updated 18.[facility] [employer] Allergies * Meperidine * Diphenhydramine(Other) * Latex * Pollen Extract(Rash) -Medium Criticality * Meperidine(Detected as duplicate during patient merge.),Inactive * Latex(Detected as duplicate during patient merge.),Inactive Medications * Be aware that medications may not be up to date on this document. Alwaysverify current medications with the patient. * Multiple Vitamin (MULTI-VITAMIN DAILY PO) Multi Vitamin * Drospirenone (SLYND) 4 MG TABS tablet Take 1 tablet by mouth once daily * cetirizine (ZYRTEC) 10 MG tablet(Started 03/01/2020) Take 1 tablet by mouth once daily as needed for Allergies * Progesterone 100 MG capsule(Started 06/09/2021) Take 100 mg by mouth once daily * estradiol (ESTRACE) 1 MG tablet(Started 06/09/2021) Take 1 mg by mouth once daily Social History Tobacco Use Types Packs/Day Years Used Date Smoking Tobacco: Never Smokeless Tobacco: Never Sex and Gender Information Value Date Recorded Sex Assigned at Female 05/02/2024 8:10 AM CDT Gender Identity Female 05/02/2024 8:10 AM CDT Sexual Orientation Straight 05/16/2024 8: 00 PM CDT Last Filed Vital Signs Vital Sign Reading Time Taken Comments Blood Pressure 118/84 06/15/2021 3:27 PM SILICA FILTER OPERATOR Pulse 91 03/01/2020 10:56 AM CDT Temperature 36.7 C (98 F) 03/01/2020 10:56 AM CDT Respiratory Rate 16 03/01/2020 10:56 AM CDT 5'3 Oxygen Saturation 99% 03/01/2020 10:56 AM CDT Inhaled Oxygen Concentration - - Weight 76.7 kg (169 lb) 06/15/2021 3:27 PM SILICA FILTER OPERATOR Height 161.3 cm (5' 3.5 ) 06/15/2021 3:27 PM SILICA FILTER OPERATOR Body Mass Index 29.47 06/15/2021 3:27 PM SILICA FILTER OPERATOR Procedures * IMAGING/RADIOLOGY/XRAY RESULTS ORDER(Performed 03/31/2020) * IMAGING/RADIOLOGY/XRAY RESULTS ORDER(Performed 03/31/2020) * LAB RESULTS ORDER(Performed 03/18/2020) * LAB RESULTS ORDER(Performed 03/08/2020) * LAB RESULTS ORDER(Performed 03/08/2020) * LAB RESULTS ORDER(Performed 03/08/2020) * LAB RESULTS ORDER(Performed 03/05/2020) * LAB RESULTS ORDER(Performed 03/03/2020) * IMAGING/RADIOLOGY/XRAY RESULTS ORDER(Performed 03/03/2020) * STREP A SCREEN - POINT OF CARE (AMB) STL(Performed 03/25/2018) Performed for Strep throat * STREP A SCREEN - POINT OF CARE (AMB) STL(Performed 10/02/2017) Performed for Acute maxillary sinusitis, recurrence not specified * STREP A SCREEN - POINT OF CARE (AMB) STL(Performed 01/14/2017) Performed for Strep throat * STREP A SCREEN - POINT OF CARE (AMB) STL(Performed 10/27/2016) Performed for Nasopharyngitis acute Results * IMAGING RADIOLOGY XRAY RESULTS ORDER (03/31/2020 2:47 PM CDT) Only the most recent of3 resultswithin the time period is included. Anatomical Region Laterality Modality Other Narrative 03/31/2020 2:47 PM CDT Ordered by an unspecified provider. Scanned Document IMAGING * LAB RESULTS ORDER (03/18/2020 11:42 AM CDT) Only the most recent of6 resultswithin the time period is included. Narrative 03/18/2020 11:42 AM CDT Ordered by an unspecified provider. Scanned Document LAB - THERAPEUTIC DR HEBERT MONITORING ORDERABLES * (ABNORMAL) STREP A SCREEN (03/25/2018) Only the most recent of4 resultswithin the time period is included. Strep A Rapid POCT Positive(A) Negative Strep A Internal Control Present Lot # [id number] Expiration Date 09/19/19 Throat ENTIRE THROAT (SURFACE REGION OF NECK) / Unknown 03/25/2018 Carmen Ga MANAGER WEB APPLICATION-LIQUEFACTION PLANT OPERATOR LAB - POINT OF CARE ORDERABLES Care Teams Treater Helper Relationship Specialty Start Date End Date Oli Landeros MD [address] [place] [address] PCP - General 06/30/19
--- OUTSIDE RECORDS SUMMARY | 2024-09-03 14:49 | XMS_ITS | Referral Summary ---
Author Organization [facility] [employer] Address [address] [place] [address] Care Team Providers Care Rn Night Name Role Phone Oli Landeros MD Primary Care Provider [phone] Source Comments [facility] [employer],non-owned Affiliates and Associated Physician Practices is amultiple site organization consisting of ambulatory clinics and hospital sitesin [place], [place], [place] and [place]. This disclosure is being madepursuant to the Care Everywhere program and may not contain all information available regarding this patient. Last updated 18.[facility] [employer] Allergies Active Allergy Reactions Criticality Noted Date [...] mg by mouth once daily 06/09/2021 Active Social History Tobacco Use Types Packs/Day Years Used Date Smoking Tobacco: Never Smokeless Tobacco: Never Sex and Gender Information Value Date Recorded Sex Assigned at Female 05/02/2024 8:10 AM CDT Gender Identity Female 05/02/2024 8:10 AM CDT Sexual Orientation Straight 05/16/2024 8: 00 PM CDT Last Filed Vital Signs Vital Sign Reading Time Taken Comments Blood Pressure 118/84 06/15/2021 3:27 PM DREDGE PUMP OPERATOR Pulse 91 03/01/2020 10:56 AM CDT Temperature 36.7 C (98 F) 03/01/2020 10:56 AM CDT Respiratory Rate 16 03/01/2020 10:56 AM CDT 5'3 Oxygen Saturation 99% 03/01/2020 10:56 AM CDT Inhaled Oxygen Concentration - - Weight 76.7 kg (169 lb) 06/15/2021 3:27 PM DREDGE PUMP OPERATOR Height 161.3 cm (5' 3.5 ) 06/15/2021 3:27 PM DREDGE PUMP OPERATOR Body Mass Index 29.47 06/15/2021 3:27 PM DREDGE PUMP OPERATOR Plan of Treatment Not on file Care Teams Rn Night Relationship Specialty Start Date End Date Oli Landeros MD [address] [place] [id number] (work) PCP - General 06/30/19
--- OUTSIDE RECORDS SUMMARY | 2024-09-03 14:55 | XMS_ITS | CONTINUITY OF CARE DOCUMENT ---
Author Name mir hester Address Unknown Organization [facility] Address [address] [place] [address] [address] [place] [address] Phone [phone] Care Team Providers Care Paste Thinner Name Role Phone mir hester Unavailable Unavailable
--- NOTE | 2024-09-03 15:40 | ED.URI ---
HPI - URI/Sore Throat General Chief Complaint: Upper Respiratory Infection Stated Complaint: Cough/Headache/Fever/Runny Nose Time Seen by Provider: 09/03/24 15:20 Source: patient, RN notes reviewed and old records reviewed Mode of arrival: ambulatory Limitations: no limitations History of Present Illness HPI Narrative: 38 year old female presents to [facility] care with complaints of cough, headache, nasal congestion with drainage, headache, chills, fevers,and some upper chest tightness with cough and some shortness of breath, symptoms 3 days.Patient reports that she has been taking Ibuprofen for her symptoms. Patient also states some discomfort to her left ear with no drainage noted or decreased hearing. MD elicited complaint: cough, rhinorrhea, nasal congestion and other (ear pain, headache) Onset (ago): day(s) (day 3 of symptoms.) Pain scale (0-10): 5 Able to tolerate fluids by mouth: Yes Treatments prior to arrival: ibuprofen Related Data Allergies Allergy/AdvReac Type Severity Reaction Status Date / Time latex Allergy Severe RASH OVER Verified 09/03/24 14:10 ENTIRE BODY, DENIES RESPIR. DISTRESS-GLOVES meperidine Allergy Severe GENERALIZED Verified 09/03/24 14:10 SWELLING tree and shrub pollen Allergy Intermediate ITCHY Verified 09/03/24 14:10 WATERY EYES, SOB DIPHENHYDRAMINE HCL Allergy Severe Muscle Uncoded 09/03/24 14:10 Spasms Grass Allergy Mild ITCHY Uncoded 09/03/24 14:10 WATERY EYES, SOB Review of Systems Review of Systems: CONSTITUTIONAL: Reports malaise, chills, sweats, or fever. EYES: Denies visual changes, redness, or discharge. ENT: Reports rhinorrhea, congestion, sinus pain,left otalgia and no sore throat. CARDIOVASCULAR: Denies chest pain, palpitations, or edema. RESPIRATORY: Reports cough.? Reports dyspnea upper chest discomfort with cough GASTROINTESTINAL: Denies abdominal pain, nausea, vomiting, diarrhea SKIN: Denies rash or itching. MUSCULOSKELETAL: Denies myalgia. NEUROLOGIC: Denies headache. All systems reviewed & are unremarkable except as noted in HPI and below PMFSH Past Medical History Medical History (Updated 09/04/24 @ 00:01 by Jose Hansen) Asthma Surgical History Surgical History (Updated 09/06/24 @ 13:10 by Brenda Ocampo NP) History of tonsillectomy H/O: hysterectomy Social History Social History Smoking status: Never smoker Living arrangements: with family Gender identity (if verbalized by the patient): Female Spiritual care concerns: No Comments At time of signature, agree with nursing past medical, surgical, social and family history. There is no relevant family history pertinent to the presenting complaint Exam Narrative: GENERAL: Well-appearing, well-nourished, and in no acute distress. HEAD: Normocephalic EYES: PERRLA, conjunctivae clear ENT: Nares clear, turbinates edematous and erythematous, clear discharge. Mucous membranes moist Left TM red and bulging, Right. TM pearly quan with dull light reflex; no tragal tenderness. Oropharynx erythematous without lesions. Tonsils not present and throat without exudate, no drooling, no hoarseness, no trismus, uvula midline.post nasal drainage NECK: Supple. No lymphadenopathy CHEST: Clear to auscultation, breath sounds equal. No wheezing, rhonchi, rales, or stridor. No respiratory distress, speaks in full sentences.cough noted SAO2 100% on room air HEART: Regular rate and rhythm. No murmur heard. SKIN: Warm, dry, no rash. NEURO: Alert and oriented x3. PSYCH: Normal mood and affect Course Course Emergency Course: Patient is aware of diagnosis, understands and agrees to treatment plan.? Anticipatory guidance given.? Patient agrees to follow-up as directed and is aware of reasons to seek care at the emergency department. Portions of this record may have been created with voice recognition software Level of Care: Express Care Visit Vital Signs Vital signs: Vital Signs Temperature 36.3 C L 09/03/24 13:59 Pulse Rate 93 09/03/24 13:59 Respiratory Rate 116 H 09/03/24 13:59 Blood Pressure 126/82 09/03/24 13:59 Pulse Oximetry 100 09/03/24 13:59 Oxygen Delivery Room Air 09/03/24 13:59 Temperature 36.3 C L 09/03/24 13:59 Pulse Rate 93 09/03/24 13:59 Respiratory Rate 116 H 09/03/24 13:59 Blood Pressure 126/82 09/03/24 13:59 Pulse Oximetry 100 09/03/24 13:59 Oxygen Delivery Room Air 09/03/24 13:59 Reviewed MDM - URI/Sore Throat MDM Narrative Medical decision making narrative: Differential diagnosis considered: Camejo virus, strep pharyngitis, allergic rhinitis, upper respiratory tract infection, sinusitis, rhinosinusitis, nasopharyngitis. viral pharyngitis, otitis media, otitis externa, pneumonia, bronchitis, viral cough syndrome, viral syndrome, and influenza.? Exam findings show no acute concerns or changes; patient is non-toxic appearing and is in no distress.? Patient is appropriate for outpatient treatment and follow-up. Differential Diagnosis Differential diagnosis: Likely upper respiratory infection, otitis media, viral infection, bronchitis, influenza and other (acute cough) Medical Records Attestation: I reviewed the patient's medical records. Lab Data Attestation: I reviewed the patient's lab results. Lab results narrative: Influenza A negative, Influenza B negative, COVID antigen negative Labs: Lab Results 09/03/24 Range/Units 15:48 POC Influenza A Ag Negative (Negative) POC Influenza B Ag Negative (Negative) POC SARS CoV-2 Ag Negative (Negative) reviewed Critical Care Time Critical Care Time Critical Care Time: No Discharge Plan Discharge Clinical Impression: Otitis media, Acute cough Patient Disposition: Home, Self-Care Condition: Stable Instructions: Antibiotic Form, Ear Infection (GEN) Additional Instructions: Increase fluids especially juices and water [id number] cough and cold medicine of your choice for your symptoms Prescription cough medicine as directed--caution drowsiness and no driving or alcohol Cough tablets as directed for cough--do not bite, chew or suck on--swallow whole Continue your inhaler/nebulizer as directed Steroids as directed--take with food heat to the face 20-30 minutes 4-6 times a day for pain Salt water gargles, throat lozenges or throat sprays as desired Antibiotic as directed--finished the medication Patient Language: Faroese Prescriptions: New amoxicillin 875 mg tablet 875 mg PO Q12H Qty: 20 0RF prednisone 20 mg tablet 20 mg PO BID Qty: 10 0RF No Action estradiol 1 mg tablet 1 mg PO DAILY Qty: 30 12RF Follow-up/Referrals: PHYSICIAN,APPEALS AND GENERALIST CLERK [Primary Care Provider] - Time of Disposition: 15:50 [place] Coma Scale Eyes: Open Verbal: Oriented and Alert Motor: Follows Commands Magalie Coma Total Score: 15
[2024-09-03 15:49] LABS: EDCOVIDSCREEN Negative (Negative); EDINFLUASCREEN Negative (Negative); EDINFLUBSCREEN Negative (Negative)
== END 2024-09-03 15:55 | disposition home or self-care (01) ==
PROVIDERS: Emergency Provider Registered Nurse
DX: H66.90 Otitis media, unspecified, unspecified ear (principal); R05.1 Acute cough; Z20.822 Contact with and (suspected) exposure to COVID-19
CPT/HCPCS: 87426; 87804; 99213; G0463